=== PATIENT | male | born 1995 | race Caucasian/White ===

== ENCOUNTER 2017-05-17 23:15 | Emergency (ER) | payer BC ==
[2017-05-18 01:03] VITALS: O2SAT 95
--- NOTE | 2017-05-18 01:15 | ED.PDOC ---
History of Present Illness - General Chief Complaint: General Stated Complaint: flu like symptoms Time Seen by Provider: 05/18/17 00:57 Source: patient Exam Limitations: no limitations - History of Present Illness Initial Comments: Kyle Garcia 22 y/o male stated that he had dull epigastric pain this am , felt nauseated but went away and tonight has body aches feel like having flu and had also sob used his mdi felt better. Timing/Duration: 24 hours, getting worse Severity: moderate Worsening Factors: nothing Associated Symptoms: other - see hpi Allergies/Adverse Reactions: Allergies NO KNOWN ALLERGY Allergy (Verified 05/18/17 01:00) Review of Systems - Review of Systems Constitutional: States: see HPI EENTM: States: nose congestion Respiratory: States: no symptoms reported Cardiology: States: no symptoms reported Gastrointestinal/Abdominal: States: see HPI Genitourinary: States: no symptoms reported Musculoskeletal: States: no symptoms reported Skin: States: no symptoms reported Past Medical History (General) - Patient Medical History Hx Seizures: No Hx Stroke: No Hx Dementia: No Hx Asthma: Yes Hx of COPD: No Hx Cardiac Disorders: No Hx Congestive Heart Failure: No Hx Pacemaker: No Hx Hypertension: No Hx Thyroid Disease: No Hx Diabetes: Yes - type 1 Hx Gastroesophageal Reflux: No Hx Renal Disease: No Hx Cancer: No Hx of HIV: No Hx Hepatitis C: No Hx MRSA: No Surgical History: appendectomy, other - insulin pump - Vaccination History Hx Tetanus, Diphtheria Vaccination: No Hx Influenza Vaccination: No Hx Pneumococcal Vaccination: No Immunizations Up to Date: Yes - Social History Hx Tobacco Use: No Hx Alcohol Use: Yes Family Medical History - Family History Mother Family History: No Known Living Status: Still Living Physical Exam - Physical Exam General Appearance: Alert, No apparent distress Eye Exam: bilateral normal Ears, Nose, Throat: hearing grossly normal, nasal congestion, pharyngeal erythema Neck: non-tender, full range of motion, supple Respiratory: chest non-tender, lungs clear, normal breath sounds, no respiratory distress Cardiovascular/Chest: normal peripheral pulses, regular rate, rhythm, no murmur Peripheral Pulses: radial,right: 2+, radial,left: 2+ Gastrointestinal/Abdominal: non tender, soft, no organomegaly Back Exam: no vertebral tenderness Extremity: no pedal edema, no calf tenderness Neurologic: alert, normal mood/affect, oriented x 3 Skin Exam: normal color, warm/dry Lymphatic: no adenopathy Progress - Progress Progress: 05/18/17 02:16 Vital Signs - 8 hr 05/18/17 01:01 Temperature 98.5 F Pulse Rate [ 94 H Left Radial] Respiratory 18 Rate Blood Pressure 118/75 [Left Arm] O2 Sat by Pulse 95 Oximetry - Results/Orders Results/Orders: Laboratory Tests 05/18/17 05/18/17 05/18/17 01:20 01:20 01:23 WBC 6.5 RBC 4.77 Hgb 14.4 Hct 42.1 MCV 88.3 MCH 30.2 MCHC 34.2 RDW 13.0 Plt Count 291 MPV 7.5 Absolute Neuts (auto) 5.30 Absolute Lymphs (auto) 0.60 L Absolute Monos (auto) 0.40 Absolute Eos (auto) 0.10 Absolute Basos (auto) 0.00 Neutrophils % 82.2 H Lymphocytes % 9.3 L Monocytes % 6.2 Eosinophils % 2.1 Basophils % 0.2 Urine Color Urine Appearance Urine pH Ur Specific [place] Urine Protein Urine Glucose (UA) Urine Ketones Urine Blood Urine Nitrite Urine Bilirubin Urine Urobilinogen Ur Leukocyte Esterase Urine RBC Urine WBC Ur Epithelial Cells Urine Bacteria Monoscreen Negative Group A Strep DNA Negative 05/18/17 01:25 WBC RBC Hgb Hct MCV MCH MCHC RDW Plt Count MPV Absolute Neuts (auto) Absolute Lymphs (auto) Absolute Monos (auto) Absolute Eos (auto) Absolute Basos (auto) Neutrophils % Lymphocytes % Monocytes % Eosinophils % Basophils % Urine Color Yellow Urine Appearance Clear Urine pH 5.5 Ur Specific [place] 1.015 Urine Protein Negative Urine Glucose (UA) 500 H Urine Ketones 15 H Urine Blood Negative Urine Nitrite Negative Urine Bilirubin Negative Urine Urobilinogen 0.2 Ur Leukocyte Esterase Negative Urine RBC 0 Urine WBC 0 Ur Epithelial Cells 0 Urine Bacteria 0 Monoscreen Group A Strep DNA Departure - Departure Clinical Impression: Body aches Diabetes Qualifiers: Diabetes mellitus type: type 1 Diabetes mellitus complication status: without complication Qualified Code(s): E10.9 - Type 1 diabetes mellitus without complications Disposition: Discharge to Home or Self Care Condition: Fair Departure Forms: ED Discharge - Pt. Copy, Patient Portal Self Enrollment Additional Instructions: RETURN TO EMERGENCY ROOM NEEDED;Continue with all home medications
--- NOTE | 2017-05-18 01:47 | RAD ---
Examination: XR CHEST 1 VIEW dated 05/18/2017 1:12 AM CDT History: body aches Comparison: None Technique: Frontal view of the chest Findings: The lungs are clear bilaterally. No pneumothorax or pleural effusion. The cardiomediastinal silhouette is within normal limits. Impression: No acute disease. Electronically signed by: Jani Burris MD 05/18/2017 1:46 AM CDT
[2017-05-18 02:36] VITALS: BP 120/76; TEMP 97.5
== END 2017-05-18 02:36 | disposition home or self-care (01) ==
LOC: ER 23:15
DX: M79.1 Myalgia (principal); E10.9 Type 1 diabetes mellitus without complications; Z96.41 Presence of insulin pump (external) (internal)